=== PATIENT | male | born 1965 | race Two or more races ===

== ENCOUNTER 2016-12-15 21:11 | Emergency (ER) | payer MEDICAID ==
[~2016-12-15] VITALS: Ht 165.1 cm; Wt 85.4 kg
[~2016-12-15 21:11] MED LIST: ASPI-621 PO; IBUP-1222 PO; LOVA10TA PO; NICO1PAT4 TD
[2016-12-15] MEDS ORDERED: ONDANSETRON ODT 8 MG ONE (21:55)
[2016-12-15] MEDS ORDERED: KETOROLAC 30 MG/1 ML ONE (21:55)
[2016-12-15] MEDS ORDERED: ACETAMINOPHEN 325 MG TABLET ONE (21:55)
[2016-12-15] MEDS ORDERED: ACETAMINOPHEN 325 MG TABLET PO ONE (22:00)
[2016-12-15] MEDS ORDERED: KETOROLAC 30 MG/1 ML IM ONE (22:00)
[2016-12-15] MEDS ORDERED: ONDANSETRON ODT 8 MG PO ONE (22:00)
[2016-12-15 22:05] VITALS: BP 152/102
[2016-12-15 22:14] LABS: ASPARTATE AMINO TRANSFERASE 75 U/L (15-37); BLOOD UREA NITROGEN 8 mg/dL (7-18)
[2016-12-15 22:15] LABS: IS PT STATUS REG ER OR PRE ER? YES
== END 2016-12-15 23:02 | disposition home or self-care (01) ==
LOC: ED 22:34
DX: R07.9 Chest pain, unspecified (principal)
CPT/HCPCS: 36415; 71010; 80053; 84484; 85025; 85610; 85730; 93005; 96372; 99285; J1885; Q0162

== ENCOUNTER 2017-03-14 09:18 | Emergency (ER) | payer MEDICAID ==
[~2017-03-14] VITALS: Ht 165.1 cm; Wt 82.2 kg
[2017-03-14 09:21] VITALS: BP 165/91
[2017-03-14] MEDS ORDERED: IBUPROFEN 200 MG TABLET ONE (09:42)
[2017-03-14] MEDS ORDERED: IBUPROFEN 200 MG TABLET PO ONE (10:00)
== END 2017-03-14 12:21 | disposition home or self-care (01) ==
LOC: ED 10:41
DX: S62.637A Displaced fracture of distal phalanx of left little finger, initial encounter for closed fracture (principal); F17.210 Nicotine dependence, cigarettes, uncomplicated; M54.9 Dorsalgia, unspecified; G89.29 Other chronic pain; Y04.8XXA Assault by other bodily force, initial encounter; Y93.89 Activity, other specified; Y92.410 Unspecified street and highway as the place of occurrence of the external cause; Y99.8 Other external cause status
CPT/HCPCS: 29125; 99284

== ENCOUNTER 2017-03-14 16:48 | Emergency (ER) | payer MEDICAID ==
[~2017-03-14] VITALS: Ht 165.1 cm; Wt 82.7 kg
[2017-03-14 16:50] VITALS: BP 160/105
[2017-03-14] MEDS ORDERED: KETOROLAC 30 MG/1 ML ONE (18:15)
[2017-03-14] MEDS ORDERED: KETOROLAC 60 MG/2 ML IV ONE (18:30)
[2017-03-14] MEDS ORDERED: SODIUM CHLORIDE FLUSH 10ML SYR IVF ONE (18:30)
[2017-03-14] MEDS ORDERED: SODIUM CHLORIDE 0.9% 1,000ML IVBOLUS ONE (18:30)
[2017-03-14] MEDS ORDERED: KETOROLAC 30 MG/1 ML IV ONE (19:00)
== END 2017-03-14 19:29 | disposition home or self-care (01) ==
LOC: ED 17:43
DX: J02.8 Acute pharyngitis due to other specified organisms (principal); I10 Essential (primary) hypertension
CPT/HCPCS: 87081; 87880; 96361; 96374; 99284; J1885; J7030

== ENCOUNTER 2020-08-02 12:07 | Emergency (ER) | payer MEDICAID, OTHER ==
[~2020-08-02] VITALS: Ht 165.1 cm; Wt 91.9 kg
[~2020-08-02 12:07] MED LIST changes: -ASPI-621 PO; +ASPI81TA45 PO; +NICO-486 TD; -NICO1PAT4 TD
--- NOTE | 2020-08-02 13:16 | NUR ---
PT STATES "I NEED NOTE FOR WORK". PT STATES HE HAS ALMOST NO SYMPTOMS, MINOR COUGH "BUT I SMOKE", INTERMITTENT [place]EDO. 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 PT IN GOWN, PULSE OX AND BP CUFF PLACED.
--- NOTE | 2020-08-02 13:37 | NUR ---
DR VICKERS IN TO SEE PT
[2020-08-02 14:12] LABS: BASOPHILS % (AUTO) 1 % (0-1); EOSINOPHILS % (AUTO) 1 % (1-7); LYMPHOCYTES % (AUTO) 44 % (22-44); MEAN CORPUSCULAR HEMOGLOBIN 32.4 pg (27.5-34.5); MEAN CORPUSCULAR HGB CONC 34.3 g/dL (33.2-36.2); MEAN PLATELET VOLUME 7.4 fL (7.4-10.4); MONOCYTES % (AUTO) 7 % (2-9); NEUTROPHILS % (AUTO) 47 % (42-75); PLATELET COUNT 272 x10^3/uL (130-400); RED BLOOD COUNT 4.74 x10^6/uL (4.38-5.82); RED CELL DISTRIBUTION WIDTH 14.3 % (9.4-14.8)
[2020-08-02 14:13] LABS: MD NO
[2020-08-02 14:21] LABS: ALBUMIN 4.6 g/dL (3.4-5.0); ANION GAP 9 mmol/L (5-15); CALCIUM 9.2 mg/dL (8.5-10.1); CHLORIDE 108 mmol/L (98-107)
[2020-08-02 14:26] LABS: ALANINE AMINOTRANSFERASE 95 U/L (12-78); ALKALINE PHOSPHATASE 76 U/L (45-117); BILIRUBIN,TOTAL 0.6 mg/dL (0.2-1.0); CREATININE 0.96 mg/dL (0.7-1.3); TOTAL PROTEIN 9.8 g/dL (6.4-8.2)
--- NOTE | 2020-08-02 14:38 | NUR ---
ALL RESULTS BACK, PT FOR RECHECK
[2020-08-02] MEDS ORDERED: ACETAMINOPHEN 500 MG TABLET ONE (15:39)
[2020-08-02 15:41] VITALS: BP 162/102
--- NOTE | 2020-08-06 10:27 | NUR ---
PT ACTUAL PHONE NUMBER - [phone]. REGISTRATION NOTIFIED TO UPDATE PT INFO
== END 2020-08-02 15:43 | disposition home or self-care (01) ==
LOC: ED 13:46
DX: J06.9 Acute upper respiratory infection, unspecified (principal); Z20.828 Contact with and (suspected) exposure to other viral communicable diseases; R51.9 Headache, unspecified; R00.0 Tachycardia, unspecified; M79.10 Myalgia, unspecified site; I10 Essential (primary) hypertension
CPT/HCPCS: 71045; 80053; 82728; 83615; 85025; 87040; 87635; 93005; 99285

== ENCOUNTER 2020-09-06 06:57 | Emergency (ER) | payer MEDICAID, OTHER ==
[~2020-09-06] VITALS: Ht 165.1 cm; Wt 91.0 kg
--- NOTE | 2020-09-06 07:03 | NUR ---
55 YR OLD MALE ARRIVED VIA EMS, PER REPORT PT BEGAN HAVING PAIN IN RIGHT FOOT/LOWER LEG YESTERDAY APPROX 7 PM. DESCRIBES SHARP. PAIN WITH PALPATION. 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
[2020-09-06] MEDS ORDERED: OXYcodone IR 5MG TABLET ONE (07:22)
--- NOTE | 2020-09-06 07:29 | NUR ---
PT MEDICATED ORDERED. U/S TECH AT BEDSIDE.
[2020-09-06] MEDS ORDERED: OXYcodone IR 5MG TABLET PO ONE (07:30)
[2020-09-06] MEDS ORDERED: HYDROcodone/APAP 5/325 TABLET PO ONE (07:30)
[2020-09-06 07:49] LABS: BASOPHILS % (AUTO) 1 % (0-1); EOSINOPHILS % (AUTO) 1 % (1-7); LYMPHOCYTES % (AUTO) 22 % (22-44); MD NO; MEAN CORPUSCULAR HEMOGLOBIN 32.4 pg (27.5-34.5); MEAN CORPUSCULAR HGB CONC 34.9 g/dL (33.2-36.2); MEAN PLATELET VOLUME 7.4 fL (7.4-10.4); MONOCYTES % (AUTO) 8 % (2-9); NEUTROPHILS % (AUTO) 69 % (42-75); PLATELET COUNT 221 x10^3/uL (130-400); RED BLOOD COUNT 4.27 x10^6/uL (4.38-5.82); RED CELL DISTRIBUTION WIDTH 12.9 % (9.4-14.8)
--- NOTE | 2020-09-06 07:54 | NUR ---
PT WITH PAIN DECREASED TO 7/10. NO ACUTE DISTRESS NOTED. PT UPDATED ON POC. WAITING FOR TEST RESULTS. NO NEEDS EXPRESSED AT THIS TIME
[2020-09-06 07:58] LABS: ALBUMIN 3.6 g/dL (3.4-5.0); ANION GAP 6 mmol/L (5-15); CALCIUM 8.8 mg/dL (8.5-10.1); CHLORIDE 106 mmol/L (98-107); CREATININE 1.04 mg/dL (0.7-1.3)
[2020-09-06] MEDS ORDERED: COLCHICINE 0.6 MG CAPSULE PO ONE (08:30)
[2020-09-06] MEDS ORDERED: COLCHICINE 0.6 MG CAPSULE ONE (08:48)
--- NOTE | 2020-09-06 08:50 | NUR ---
DR TERESA AT BEDSIDE TO RE-EVAL PT. PT MEDICATED ORDERED.
--- NOTE | 2020-09-06 08:51 | NUR ---
PT WITH PAIN DECREASED TO 6/10
--- NOTE | 2020-09-06 09:35 | NUR ---
PT WITH PAIN DECREASED TO 5/10. PT INSTRUCTED AND DEMONSTRATED USE OF CRUTCHES. NO IV TO DC. REVIEWED DC INSTRUCTIONS WITH PT, UNDERSTANDING VERBALIZED. PT LEFT AMB WITH CRUTCHES. PT PROVIDED WITH COMMUNITY MEDICATION ASSISTANCE INFORMATION.
[2020-09-06 09:37] VITALS: BP 147/85
== END 2020-09-06 09:39 | disposition home or self-care (01) ==
LOC: ED 08:01
DX: M25.571 Pain in right ankle and joints of right foot (principal); M79.89 Other specified soft tissue disorders; I10 Essential (primary) hypertension; F17.200 Nicotine dependence, unspecified, uncomplicated
CPT/HCPCS: 36415; 80048; 82040; 84550; 85025; 99285

== ENCOUNTER 2021-03-24 13:28 | Emergency (ER) | payer MEDICAID ==
[~2021-03-24] VITALS: Ht 165.1 cm; Wt 81.6 kg
[2021-03-24 13:45] VITALS: BP 126/72
--- NOTE | 2021-03-24 14:03 | NUR ---
PA AT BS FOR EVAL
[2021-03-24 14:17] LABS: MICROSCOPIC INDICATED
--- NOTE | 2021-03-24 15:07 | NUR ---
Patient given discharge instructions and they have confirmed that they understand the instructions. Patient ambulatory with steady gait.
== END 2021-03-24 15:15 | disposition home or self-care (01) ==
LOC: ED 15:05
DX: K40.90 Unilateral inguinal hernia, without obstruction or gangrene, not specified as recurrent (principal); I10 Essential (primary) hypertension
CPT/HCPCS: 76857; 81001; 87086; 99284

== ENCOUNTER 2021-04-10 12:37 | Emergency (ER) | payer MEDICAID ==
[~2021-04-10] VITALS: Ht 165.1 cm; Wt 83.1 kg
[2021-04-10 12:46] VITALS: BP 113/72
--- NOTE | 2021-04-10 13:08 | NUR ---
FIRST CONTACT: LLQ pain x2 days, denies N/V/D. TO ROOM WITH STEADY GAIT. POSTIONED TO COMFORT IN BED. ATTACHED TO MONITORS. VSS. RUTH.
--- NOTE | 2021-04-10 13:21 | NUR ---
DR. RAJAN TO BEDSIDE FOR EVALUATION.
--- NOTE | 2021-04-10 13:42 | NUR ---
Patient given discharge instructions and they have confirmed that they understand the instructions. Patient ambulatory with steady gait. NAD, all questions answered appropriately, denies additional needs at this time. No personal belongings left in room after discharge.
== END 2021-04-10 13:43 | disposition home or self-care (01) ==
LOC: ED 13:28
DX: K40.91 Unilateral inguinal hernia, without obstruction or gangrene, recurrent (principal); I10 Essential (primary) hypertension; F17.200 Nicotine dependence, unspecified, uncomplicated
CPT/HCPCS: 99281

== ENCOUNTER 2021-05-11 16:58 | Emergency (ER) | payer MEDICAID ==
[~2021-05-11] VITALS: Ht 165.1 cm; Wt 82.3 kg
--- NOTE | 2021-05-11 20:47 | NUR ---
clinical advisor: patient to room from lobby.
[2021-05-11 21:08] VITALS: BP 121/80
== END 2021-05-11 21:24 ==
LOC: ED 21:23
DX: K40.91 Unilateral inguinal hernia, without obstruction or gangrene, recurrent (principal)
CPT/HCPCS: 99281